=== PATIENT | male | born 1970 | race Caucasian/White ===

== ENCOUNTER 2020-01-26 19:04 | Emergency (ER) | payer SELFPAY ==
[~2020-01-26] VITALS: Ht 175.3 cm; Wt 83.5 kg
[2020-01-26 19:14] VITALS: Ht 175.3 cm; Wt 83.5 kg
[2020-01-26 21:15] VITALS: BP 156/71
== END 2020-01-26 21:16 | disposition home or self-care (01) ==
LOC: ED 19:04
DX: S61.215A Laceration without foreign body of left ring finger without damage to nail, initial encounter (principal); X58.XXXA Exposure to other specified factors, initial encounter; Y93.89 Activity, other specified; Y92.89 Other specified places as the place of occurrence of the external cause; Y99.8 Other external cause status
CPT/HCPCS: 90715

== ENCOUNTER 2020-02-05 18:06 | Emergency (ER) | payer SELFPAY ==
[~2020-02-05] VITALS: Ht 172.7 cm; Wt 85.3 kg
[2020-02-05 19:11] VITALS: BP 146/78
== END 2020-02-05 19:11 | disposition home or self-care (01) ==
LOC: ED 18:06
DX: S61.215D Laceration without foreign body of left ring finger without damage to nail, subsequent encounter (principal); X58.XXXD Exposure to other specified factors, subsequent encounter